=== PATIENT | female | born 1970 | race Caucasian/White ===

== ENCOUNTER 2018-02-19 08:00 | Outpatient (CLI) | payer MEDICAID ==
[2018-02-18 12:10] LABS: BASOPHILS 0.1 % (0-2); EOSINOPHILS 0.8 % (0-7); HEMATOCRIT 45.6 % (36.0-48.0); HEMOGLOBIN 15.4 g/dL (12-16); IMMATURE GRANULOCYTES 0.2 % (0-5); LYMPHOCYTES 28.7 % (15-50); MCH 32.2 pg (26.0-34.0); MCHC 33.8 g/dL (31.0-37.0); MCV 95.4 fL (80.0-100.0); MEAN PLATELET VOLUME 10.7 fL (7.4-10.4); MONOCYTES 5.8 % (2-11); NEUTROPHILS 64.4 % (40-80); PLATELET COUNT 231 10x3/uL (130-400); RBC 4.78 10x6/uL (4.00-5.40); RDW 13.3 % (11.5-14.5); WBC 8.4 10x3/uL (4.8-10.8)
[2018-02-18 12:22] LABS: CALC OSMOLALITY 275 mosm/kg (275-300); CALCIUM 9.1 mg/dL (8.5-10.1); CHLORIDE - SERUM 103 mmol/L (98-107); CREATININE - SERUM 0.8 mg/dL (0.6-1.3); GLUCOSE 78 mg/dL (74-106); POTASSIUM - SERUM 3.8 mmol/L (3.5-5.1); SODIUM 139 mmol/L (136-145); UREA NITROGEN 9 mg/dL (7-18); eGFR NON AFRICAN AMERICAN 81 mL/min (90-120)
[~2018-02-19 08:00] MED LIST: COZAAR25 MG PO; PROZAC10 MG PO
== END 2018-02-19 08:01 | disposition home or self-care (01) ==
LOC: D.OPS 08:00 → EDSTATUS 10:45 → D.PAN 10:45 → D.OPS 10:45
PROVIDERS: Anesthesiology
DX: M20.11 Hallux valgus (acquired), right foot (principal); Z01.810 Encounter for preprocedural cardiovascular examination; Z01.811 Encounter for preprocedural respiratory examination; Z01.812 Encounter for preprocedural laboratory examination; Z53.9 Procedure and treatment not carried out, unspecified reason

== ENCOUNTER → 2020-10-11 14:18 | Outpatient (CLI) | payer MEDICAID ==
--- NOTE | ~2020-10-11 | EC ---
PATIENT:MARCIN LEIGH DATE OF SERVICE: 10/11/20 SEX: F MEDICAL RECORD: [id number] DATE OF : 72 LOCATION:[facility] AGE OF PATIENT: 50 ADMISSION DATE: 10/11/20 REFERRING PHYSICIAN: INTERPRETING PHYSICIAN: MAHENDRA CARTWRIGHT MD ECHOCARDIOGRAM REPORT ECHO CHARGES 4 ECHO COMPLETE Date: 10/11/20 CLINICAL DIAGNOSIS: HEART MURMUR ECHOCARDIOGRAPHIC MEASUREMENTS (adult normal given) AC root (d.<3.7cm) 2.4 cm LV Septum d (<1.2 cm> 1.0 cm Valve Excursion 1.3 cm LV Septum (systole) 1.2 cm Left Atria (s.<4.0cm> 3.2 cm LVPW d(<1.2cm) 1.4 cm RV (d.<2.3cm) 3.3 cm LVPW (sytole) 1.6 cm LV diastole(<5.6CM) 4.3 cm MV E-F(>70mm/sec) cm LV systole 2.8 cm LVOT Diameter 1.6 cm MV exc.(>10mm) 2.4 cm Est.ejection fraction (50-75%) % DOPPLER: LVIT cm/sec A 70.0 cm/sec E 62.0 cm/sec LA cm/sec RVSP 18 mmHg LVOT 118 cm/sec AOP1/2T m/s Asc. Ao 136 cm/sec RVOT 68 cm/sec RA cm/sec PA 91 cm/sec AV Gradient Peak 7.44 mmHg AV Mean 3.98 mmHg AV Area 2.0 cm MV Gradient Peak 2.21 mmHg MV Mean 0.70 mmHg MV Area cm COMMENTS: Cotton Wringer: 2 BALA LEIJA Decoration Checker: 3 Dr. Candelario TAPE# PACS Pericardial Effusion N DATE OF SERVICE: Adequate 2D, color flow imaging, spectral Doppler, and M-Mode. No LVH. LV internal dimensions are normal. Wall motion is normal. EF is greater than or equal to 55%. Aortic valve is tricuspid. No evidence of stenosis by Doppler interrogation. Left atrium is normal. Mitral valve shows no prolapse. Trace MR. Right side is grossly normal. Trace TR. TRANSINT:[id number] Voice Confirmation ID: [id number] DOCUMENT ID: [id number] ECHOCARDIOGRAM REPORT [id number] LYNCHARD,MARCIN MAHENDRA MOREL MD CC: [id number] DICTATION DATE: 10/12/20 1136 IN STORE REPRESENTATIVE: 10/12/202037 DEP CLI 10/11/20 [id number] [place] [address]
--- NOTE | ~2020-10-11 | ST ---
PATIENT:MARCIN LEIGH MEDICAL RECORD: [id number] SEX: F LOCATION:[facility] ORDER #: ADMISSION DATE: 10/11/20 AGE OF PATIENT: 50 REFERRING PHYSICIAN: INTERPRETING PHYSICIAN: MAHENDRA CARTWRIGHT MD DATE OF SERVICE: 10/11/2020 PROCEDURE: Regular treadmill stress test. Baseline ECG normal. Exercised for 7 minutes on Bishnu protocol. Maximum heart rate 206 per minute. It was greater than 100% max predicted. No ECG changes for ischemia. No symptoms of ischemia. Normal blood pressure response to exercise. No arrhythmias noted. Poor exercise tolerance for age. IMPRESSION: Negative treadmill stress test with poor exercise tolerance. TRANSINT:[id number] Voice Confirmation ID: [id number] DOCUMENT ID: [id number] MAHENDRA CARTWRIGHT MD CC: [id number] DICTATION DATE: 10/12/20822 SENIOR INVESTMENT ANALYST: 10/13/20326 DEP CLI 10/11/20 [place] [id number] [place] [id number]
== END | disposition home or self-care (01) ==
LOC: D.HCCECHO 14:18
PROVIDERS: ATTEND Internal Medicine Interventional Cardiology
DX: R07.9 Chest pain, unspecified (principal); R01.1 Cardiac murmur, unspecified